=== PATIENT | male | born 1960 | race Caucasian/White ===

== ENCOUNTER 2016-05-31 18:21 | Emergency (ER) | payer OTHER ==
[2016-05-31 19:53] LABS: BASOPHILS 0.3 %; BASOPHILS ABSOLUTE 0.01 10/3/uL (0.0-0.16); EOSINOPHILS 0.8 %; EOSINOPHILS ABSOLUTE 0.03 10/3/uL (0.0-0.53); ER CBC TAT 0 Hrs 08 Mins; HEMATOCRIT 30.3 % (40.0-51.0); LYMPHOCYTES 19.6 %; MEAN CORPUSCULAR HEMOGLOB 28.8 pg (26.0-34.0); MEAN CORPUSCULAR VOLUME 87.3 fL (80-100); MEAN PLATELET VOLUME 10.3 fL (9.2-13.0); MONOCYTES 8.7 %; MONOCYTES ABSOLUTE 0.31 10/3/uL (0.21-1.20); NEUTROPHILS 70.6 %; NEUTROPHILS ABSOLUTE 2.53 10/3/uL (2.02-8.40); PLATELET COUNT 65 10/3/uL (150-400); RBC DISTRIBUTION WIDTH 14.1 % (12.0-16.0); RED CELL COUNT 3.47 10/6/uL (4.7-6.1); WHITE BLOOD CELLS 3.6 10/3/uL (4.5-10.5)
[2016-05-31 19:59] LABS: MANUAL DIFF NO %
[2016-05-31 20:01] LABS: INTERNATIONAL NORMAL RATI 1.2 UNITS (-); PROTIME (NOT ORD) 15.3 SEC (12.0-14.5)
[2016-05-31 20:02] LABS: PARTIAL THROMBO TIME 42.2 SEC (22.5-37.2)
[2016-05-31 20:10] LABS: BUN (BLOOD UREA NITROGEN) 41 MG/DL (6-23); CALCIUM, SERUM 8.3 MG/DL (8.5-10.4); CHLORIDE, SERUM 101 MMOL/L (96-112); CO2 (CARBON DIOXIDE) 29 MMOL/L (24-34); CREATININE 7.05 MG/DL (0.70-1.30); GFR AFRICAN AMERICAN 9 ML/MIN (>=60); GFR NON AFRICAN AMERICAN 8 ML/MIN (>=60); GLUCOSE, SERUM 79 MG/DL (60-99); LACTATE 1.6 MMOL/L (0.3-2.4); POTASSIUM, SERUM 4.2 MMOL/L (3.5-5.3); SODIUM, SERUM 141 MMOL/L (135-148)
[2016-05-31 20:11] LABS: CHEST PAIN PROFILE TAT 0 Hrs 26 Mins; TROPONIN I 0.08 NG/ML (<0.05)
[2016-05-31] MEDS ORDERED: NEUR100 PO (20:15)
[2016-05-31] MEDS ORDERED: AURYXIA210 MG PO ×2 (20:18→20:19)
[2016-05-31] MEDS ORDERED: ACET500CAP PO (20:19)
[2016-05-31] MEDS ORDERED: NITROQUICK0.4 MG SL (20:20)
[2016-05-31] MEDS ORDERED: VITAMIN B-121000 MC1 SL (20:20)
[2016-05-31] MEDS ORDERED: ALBUTEROL0.083 % INH (20:21)
[2016-05-31 20:27] LABS: PLATELET ESTIMATE DEC (ADEQUATE)
[2016-05-31 20:29] LABS: RBC MORPHOLOGY NORM (NORMAL)
== END 2016-05-31 22:17 | disposition home or self-care (01) ==
LOC: ER 18:21
PROVIDERS: Emergency Medicine
DX: J18.9 Pneumonia, unspecified organism (principal); B37.9 Candidiasis, unspecified; I10 Essential (primary) hypertension; Z87.891 Personal history of nicotine dependence; Z79.899 Other long term (current) drug therapy
CPT/HCPCS: 71010; 80048; 83605; 83735; 84484; 85025; 85610; 85730; 87040; 87070; 87205; 93005; 94640; 96365; 96375; 99285; J0456; J2405; J2930